=== PATIENT | female | born 1975 | race African-American/Black ===

== ENCOUNTER 2019-11-07 18:20 | Emergency (ER) | payer MEDICARE ==
[~2019-11-07] VITALS: Ht 160 cm; Wt 43.5 kg
[2019-11-07] MEDS ORDERED: ONDANSETRON HCL INJ 2MG/ML 2ML 2 MG/ML VIAL IV STA (19:12)
[2019-11-07] MEDS ORDERED: SODIUM CHLORIDE 0.9% 1000ML 1,000 ML IV ONE (19:15)
--- NOTE | 2019-11-07 19:18 | Emergency Department Note ---
History of Present Illnes History of Present Illness Chief Complaint: Abdominal Complaints History of Present Illness This is a 44 year old female YESTERDAY BEGAN HAVING DIARRHEA X 3 EPISODES. TODAY MULTIPLE VOMITING AND DIZZINESS. WHAT EVER SHE PUTS FEEDING INTO THE PEG TUBE, SHE VOMITS . Historian: Patient Arrival Mode: Car Additional Treatment CHECK PILOT: NONE Optometry Teacher Required: No Onset (how long ago): day(s) (1) Location: ABD Quality: UPPER ABD PAIN, VOMITING, DIARRHEA Radiation: Reports non-radiation Severity: mild Onset quality: sudden Duration (how long): day(s) (1) Timing of current episode: constant Progression: unchanged Chronicity: new Context: Denies recent illness, Denies recent surgery, Denies trauma/injury Relieving factors: none Exacerbating factors: none Associated symptoms: Reports denies other symptoms Past Medical/Family History Physician Review I have reviewed the patient's past medical and family history. Any updates have been documented here. Past Medical History Recent Fever: No Clinical Suspicion of Infectio: No New/Unexplained Change in Ment: No Past Medical History: Cancer Other Medical History: NASAL PHARYNGEAL CANCER Past Surgical History: Hysterectomy Other Surgery: PEG Social History Smoking Cessation: Never Smoker Alcohol Use: None Any Illegal Drug Use: No Family History Family history of heart diseas: No Review of Systems Review of Systems Constitutional: Reports no symptoms EENTM: Reports no symptoms Cardiovascular: Reports no symptoms Respiratory: Reports no symptoms Gastrointestinal: Reports as per HPI Genitourinary: Reports no symptoms Musculoskeletal: Reports no symptoms Integumentary: Reports no symptoms Neurological: Reports no symptoms Psychological: Reports no symptoms Endocrine: Reports no symptoms Hematological/Lymphatic: Reports no symptoms Physical Exam Related Data Allergies: Coded Allergies: ceftriaxone (Verified Allergy, Severe, STOPS BREATHING, 11/07/19) levofloxacin (Verified Allergy, Intermediate, rash, 11/07/19) Triage Vital Signs Vital Signs Date Time Temp Pulse Resp B/P (MAP) Pulse Ox O2 Delivery O2 Flow Rate FiO2 11/07/19 19:00 98.8 103 18 94/74 99 Vital signs reviewed: Yes Physical Exam CONSTITUTIONAL Constitutional: Present well-developed, Present well-nourished; Absent distressed HENT HENT: Present normocephalic, Present atraumatic, Present oropharynx clear/moist, Present nose normal HENT L/R: Present left ext ear normal, Present right ext ear normal EYES Eyes: Reports PERRL, Reports conjunctivae normal NECK Neck: Present ROM normal PULMONARY Pulmonary: Present effort normal, Present breath sounds normal CARDIOVASCULAR Cardiovascular: Present regular rhythm, Present heart sounds normal, Present capillary refill normal, Present tachycardia (101) GASTROINTESTINAL Abdominal: Present soft, Present bowel sounds normal, Present tender (MILD EPIGASTRIC AND LOWER ABD PAIN), Present other (G BUTTON FEEDING TUBE PRESENT) GENITOURINARY Genitourinary: Present exam deferred SKIN Skin: Present warm, Present dry MUSCULOSKELETAL Musculoskeletal: Present ROM normal NEUROLOGICAL Neurological: Present alert, Present oriented x 3, Present no gross motor or sensory deficits PSYCHOLOGICAL Psychological: Present mood/affect normal, Present judgement normal Results Laboratory Laboratory Laboratory Tests Test 11/07/19 21:58 11/07/19 19:10 Urine Color Yellow (YELLOW) Urine Clarity Sl cloudy (CLEAR) Urine pH 5.5 (5 - 7) Urine Specific [place] 1.020 (1.010-1.025) Urine Protein 1+ (NEGATIVE) Urine Glucose (UA) Negative (NEGATIVE) Urine Ketones 1+ (NEGATIVE) Urine Blood Negative (NEGATIVE) Urine Nitrite Negative (NEGATIVE) Urine Bilirubin Negative (NEGATIVE) Urine Urobilinogen 0.2 mg/dL (0.2 - 1) Urine Leukocyte Esterase Negative (NEGATIVE) Urine RBC None /HPF (0-5) Urine WBC None /HPF (0-5) Urine Epithelial Cells Many /LPF (NONE) Urine Amorphous Sediment Moderate (FEW) Urine Bacteria Moderate /HPF (NONE) Coronavirus (PCR) Not detected (NOTDETECTED) White Blood Count 9.03 x10e3/uL (4.8-10.8) Red Blood Count 4.77 x10e6/uL (3.6-5.1) Hemoglobin 13.0 g/dL (12.0-16.0) Hematocrit 41.9 % (34.2-44.1) Mean Corpuscular Volume 87.8 fL (81-99) Mean Corpuscular Hemoglobin 27.3 pg (28-32) Mean Corpuscular Hemoglobin Concent 31.0 g/dL (31-35) Red Cell Distribution Width 15.2 % (11.7-14.4) Platelet Count 359 x10e3/uL (140-360) Neutrophils (%) (Auto) 89.0 % (38.7-80.0) Lymphocytes (%) (Auto) 5.5 % (18.0-39.1) Monocytes (%) (Auto) 5.0 % (4.4-11.3) Eosinophils (%) (Auto) 0.2 % (0.0-6.0) Basophils (%) (Auto) 0.1 % (0.0-1.0) Neutrophils # (Auto) 8.0 (2.1-6.9) Lymphocytes # (Auto) 0.5 (1.0-3.2) Monocytes # (Auto) 0.5 (0.2-0.8) Eosinophils # (Auto) 0.0 (0.0-0.4) Basophils # (Auto) 0.0 (0.0-0.1) Absolute Immature Granulocyte (auto 0.02 x10e3/uL (0-0.1) Sodium Level 141 mmol/L (136-145) Potassium Level 3.8 mmol/L (3.5-5.1) Chloride Level 99 mmol/L (98-107) Carbon Dioxide Level 22 mmol/L (22-29) Anion Gap 23.8 mmol/L (8-16) Blood Urea Nitrogen 28 mg/dL (7-26) Creatinine 1.30 mg/dL (0.57-1.11) Estimat Glomerular Filtration Rate 44 ML/MIN (60-) BUN/Creatinine Ratio 22 (6-25) Glucose Level 89 mg/dL (74-118) Calcium Level 9.6 mg/dL (8.4-10.2) Total Bilirubin 0.2 mg/dL (0.2-1.2) Aspartate Amino Transf (AST/SGOT) 38 IU/L (5-34) Alanine Aminotransferase (ALT/SGPT) 24 IU/L (0-55) Alkaline Phosphatase 116 IU/L (40-150) Total Protein 8.5 g/dL (6.5-8.1) Albumin 3.7 g/dL (3.5-5.0) Globulin 4.8 g/dL (2.3-3.5) Albumin/Globulin Ratio 0.8 (0.8-2.0) Amylase Level 38 U/L (25-125) Lipase 32 U/L (8-78) Lab results reviewed: Yes Imaging Imaging results reviewed: Yes Impressions Procedure: CT/CT ABDOMEN/PELVIS W Exam Date: 11/07/19 Exam Time: 2019 REPORT STATUS: Signed EXAM: CT Abdomen and Pelvis WITH contrast INDICATION: EVAL FOR SBO, PEG TUBE PROBLEM COMPARISON: None. TECHNIQUE: Abdomen and pelvis were scanned utilizing a multidetector helical scanner from the lung base to the pubic symphysis after administration of IV contrast. Coronal and sagittal reformations were obtained. Routine protocol was performed. Scan was performed when during portal venous phase. IV CONTRAST: 100 mL of Isovue 370 ORAL CONTRAST: None COMPLICATIONS: None RADIATION DOSE: Total DLP: 167.68 mGy*cm Estimated effective dose: (DLP x 0.015 x size factor) mSv CTDIvol has been reviewed. It is below the limits set by the Radiation Protocol Committee (RPC). Dose modulation, iterative reconstruction, and/or weight based adjustment of the mA/kV was utilized to reduce the radiation dose to as low as reasonably achievable. FINDINGS: LINES and TUBES: There is a G-tube in place which terminates within the gastric body. LOWER THORAX: Patchy airspace opacities throughout bilateral lung bases compatible with multifocal pneumonia. HEPATOBILIARY: Multifocal subcentimeter hypodense lesions throughout the liver are too small to characterize and likely represent small cysts. The liver is enlarged measuring up to 18 cm. No biliary ductal dilation. GALLBLADDER: No radio-opaque stones or sludge. No wall thickening. SPLEEN: Indeterminate 1.2 cm hypodense lesion in the spleen. No splenomegaly. PANCREAS: No focal masses or ductal dilatation. ADRENALS: No adrenal nodules KIDNEYS/URETERS: Kidneys enhance symmetrically. No hydronephrosis. Left lower pole renal cyst. No solid mass. No stones. GI TRACT: No abnormal distention, wall thickening, or evidence of bowel obstruction. Appendix is normal. PELVIC ORGANS/BLADDER: There is an enlarged hyperenhancing uterus with lobulated contour which measures approximately 14 x 7 cm. LYMPH NODES: No lymphadenopathy. VESSELS: There are multiple superficial venous collaterals throughout the anterior chest wall, anterior abdominal wall and paraspinal soft tissues. PERITONEUM / RETROPERITONEUM: No free air or fluid. BONES: Unremarkable. SOFT TISSUES: Unremarkable. IMPRESSION: 1. G-tube is normally positioned within the gastric body. 2. Patchy airspace opacities throughout bilateral lung bases compatible with multifocal pneumonia. 3. Multiple superficial venous collaterals throughout the anterior chest wall, anterior abdominal wall and paraspinal soft tissues. This finding can be associated with superior vena cava obstruction. Recommend obtaining a chest CT with intravenous contrast to evaluate the superior SVC and complete assessment of the lungs. 4. Indeterminate 1.2 cm hypodense lesion in the spleen. Recommend evaluation with nonemergent MRI of the abdomen (splenic mass protocol). 5. Enlarged hyperenhancing uterus with lobulated contour which measures approximately 14 x 7 cm. This most likely represents multiple uterine fibroids. However, further evaluation with dedicated pelvic ultrasound should be considered. 6. Hepatomegaly. Signed by: Larry Mora MD on 11/07/2019 9:46 PM Dictated By: LARRY MORA MD 44 Transcribed By: GAIL on 11/07/192145 COPY TO: MARGARET ARNOLD MD~ Assessment & Plan Medical Decision Making MDM PT WITH DIARRHEA YESTERDAY AND VOMITING TODAY EVERYTIME SHE PUTS ANYTHING INTO HER PEG TUBE CBC.,CMP, AMYLASE,LIPASE,UA, CT ABD/PELVIS ORDERED TO EVAL FOR PANCREATITIS, ELEVATED LFT'S, BOWEL OBSTRUCTION, PEG TUBE PROBLEM ZOFRAN 4 MG IV ORDERED NS 1 LITER IV BOLUS ORDERED DR BOWMAN ACCEPTS PT IN TRANSFER TO [facility] Assessment & Plan Final Impression: (1) Aspiration pneumonia (2) Malfunction of gastrostomy tube (3) Vomiting Depart Disposition: TRANS TO OTHER [facility] Last Vital Signs Date Time Temp Pulse Resp B/P (MAP) Pulse Ox O2 Delivery O2 Flow Rate FiO2 11/07/19 19:00 98.8 103 18 94/74 99 MARGARET ARNOLD MD Nov 07, 2019 19:18
[2019-11-07] MEDS ORDERED: DIATRIZOATE MEGL/DIATRIZOA SOD 30 ML BTL PO ONE (19:26)
[2019-11-07 19:28] LABS: BASOPHILS % 0.1 % (0.0-1.0); EOSINOPHILS % 0.2 % (0.0-6.0); HEMATOCRIT 41.9 % (34.2-44.1); LYMPHOCYTES # (AUTO) 0.5 (1.0-3.2); LYMPHOCYTES % 5.5 % (18.0-39.1); MEAN CORPUSCULAR HEMOGLOBIN 27.3 pg (28-32); MEAN CORPUSCULAR VOLUME 87.8 fL (81-99); MONOCYTES # (AUTO) 0.5 (0.2-0.8); PLATELET COUNT 359 x10e3/uL (140-360); RED BLOOD COUNT 4.77 x10e6/uL (3.6-5.1); RED CELL DISTRIBUTION WIDTH 15.2 % (11.7-14.4)
[2019-11-07 19:40] LABS: ALBUMIN 3.7 g/dL (3.5-5.0); ALBUMIN/GLOBULIN RATIO 0.8 (0.8-2.0); ANION GAP 23.8 mmol/L (8-16); CALCIUM 9.6 mg/dL (8.4-10.2); CREATININE, SERUM 1.3 mg/dL (0.57-1.11); POTASSIUM 3.8 mmol/L (3.5-5.1)
[2019-11-07 19:53] LABS: AMYLASE 38 U/L (25-125); LIPASE 32 U/L (8-78)
--- NOTE | 2019-11-07 20:53 | NUR ---
received patient in room
--- NOTE | 2019-11-07 21:49 | Diagnostic Imaging Report ---
EXAM: CT Abdomen and Pelvis WITH contrast INDICATION: EVAL FOR SBO, PEG TUBE PROBLEM COMPARISON: None. TECHNIQUE: Abdomen and pelvis were scanned utilizing a multidetector helical scanner from the lung base to the pubic symphysis after administration of IV contrast. Coronal and sagittal reformations were obtained. Routine protocol was performed. Scan was performed when during portal venous phase. IV CONTRAST: 100 mL of Isovue 370 ORAL CONTRAST: None COMPLICATIONS: None RADIATION DOSE: Total DLP: 167.68 mGy*cm Estimated effective dose: (DLP x 0.015 x size factor) mSv CTDIvol has been reviewed. It is below the limits set by the Radiation Protocol Committee (RPC). Dose modulation, iterative reconstruction, and/or weight based adjustment of the mA/kV was utilized to reduce the radiation dose to as low as reasonably achievable. FINDINGS: LINES and TUBES: There is a G-tube in place which terminates within the gastric body. LOWER THORAX: Patchy airspace opacities throughout bilateral lung bases compatible with multifocal pneumonia. HEPATOBILIARY: Multifocal subcentimeter hypodense lesions throughout the liver are too small to characterize and likely represent small cysts. The liver is enlarged measuring up to 18 cm. No biliary ductal dilation. GALLBLADDER: No radio-opaque stones or sludge. No wall thickening. SPLEEN: Indeterminate 1.2 cm hypodense lesion in the spleen. No splenomegaly. PANCREAS: No focal masses or ductal dilatation. ADRENALS: No adrenal nodules KIDNEYS/URETERS: Kidneys enhance symmetrically. No hydronephrosis. Left lower pole renal cyst. No solid mass. No stones. GI TRACT: No abnormal distention, wall thickening, or evidence of bowel obstruction. Appendix is normal. PELVIC ORGANS/BLADDER: There is an enlarged hyperenhancing uterus with lobulated contour which measures approximately 14 x 7 cm. LYMPH NODES: No lymphadenopathy. VESSELS: There are multiple superficial venous collaterals throughout the anterior chest wall, anterior abdominal wall and paraspinal soft tissues. PERITONEUM / RETROPERITONEUM: No free air or fluid. BONES: Unremarkable. SOFT TISSUES: Unremarkable. IMPRESSION: 1. G-tube is normally positioned within the gastric body. 2. Patchy airspace opacities throughout bilateral lung bases compatible with multifocal pneumonia. 3. Multiple superficial venous collaterals throughout the anterior chest wall, anterior abdominal wall and paraspinal soft tissues. This finding can be associated with superior vena cava obstruction. Recommend obtaining a chest CT with intravenous contrast to evaluate the superior SVC and complete assessment of the lungs. 4. Indeterminate 1.2 cm hypodense lesion in the spleen. Recommend evaluation with nonemergent MRI of the abdomen (splenic mass protocol). 5. Enlarged hyperenhancing uterus with lobulated contour which measures approximately 14 x 7 cm. This most likely represents multiple uterine fibroids. However, further evaluation with dedicated pelvic ultrasound should be considered. 6. Hepatomegaly. Signed by: Larry Morejon MD on 11/07/2019 9:46 PM
[2019-11-07] MEDS ORDERED: LEVOFLOXACIN 500MG/D5W 100ML 100 ML IV ONE (22:00)
[2019-11-07 22:18] LABS: BILIRUBIN,URINE NEGATIVE (NEGATIVE); CLARITY,URINE SL CLOUDY (CLEAR); COLOR,URINE YELLOW (YELLOW); KETONES,URINE 1+ (NEGATIVE); LEUKOCYTE ESTERASE ,URINE NEGATIVE (NEGATIVE); NITRITE,URINE NEGATIVE (NEGATIVE); PROTEIN,URINE DIPSTICK 1+ (NEGATIVE); URINE UROBILINOGEN 0.2 mg/dL (0.2 - 1)
[2019-11-07 22:27] LABS: AMORPHOUS SEDIMENT,URINE MODERATE (FEW); BACTERIA,URINE MODERATE /HPF; EPITHELIAL CELLS,URINE MANY /LPF
[2019-11-07] MEDS ORDERED: IOPAMIDOL 370 MG/ML 200 ML INFUS..BTL INJ ONE (22:37)
[2019-11-07] MEDS ORDERED: SODIUM CHLORIDE 0.9% 50ML 50 ML ONE (22:37)
--- NOTE | 2019-11-07 22:51 | NUR ---
levaquin=allergic reaction noted, rash noted to iv site and upper arm, patient in not respiratory distress, md notified
--- NOTE | 2019-11-07 22:52 | NUR ---
iv levaquin stopped immediately
[2019-11-07] MEDS ORDERED: METHYLPREDNISOLONE SOD SUCC 125 MG/2ML VIAL IV ONE (23:00)
[2019-11-07] MEDS ORDERED: DIPHENHYDRAMINE HCL INJ 50 MG/ML VIAL IV ONE (23:00)
[2019-11-07] MEDS ORDERED: MEROPENEM 1GRAM 1 GM in SODIUM CHLORIDE 0.9% 100 ML 100 ML IV ONE (23:30)
--- NOTE | 2019-11-08 00:38 | NUR ---
TRANSFER INITIATED TO [facility] FOR ADMISSION TO DR. BOWMAN IF BED IS AVAILABLE
--- NOTE | 2019-11-08 01:08 | NUR ---
[facility] CALLED FOR TRANSPORT
[2019-11-08] MEDS ORDERED: MEROPENEM 1 GM VIAL ONE (01:37)
[2019-11-08] MEDS ORDERED: SODIUM CHLORIDE 0.9% 100 ML ONE (01:39)
[2019-11-08 03:02] VITALS: BP 93/73
== END 2019-11-08 03:05 | disposition other institution (70) ==
LOC: ER 20:15
DX: J69.0 Pneumonitis due to inhalation of food and vomit (principal); K94.23 Gastrostomy malfunction; R11.10 Vomiting, unspecified; R10.10 Upper abdominal pain, unspecified; R19.7 Diarrhea, unspecified; Z85.818 Personal history of malignant neoplasm of other sites of lip, oral cavity, and pharynx
CPT/HCPCS: 36415; 74177; 80053; 81001; 82150; 83690; 85025; 87040; 99284; J1200; J1956; J2185 ×2; J2405; J2930; J7030; J7050; Q9967; U0002